=== PATIENT | female | born 1970 | race Caucasian/White ===

== ENCOUNTER 2016-12-20 04:40 | Emergency (ER) | payer OTHER ==
--- NOTE | 2016-12-20 05:07 | ERPHSYRPT ---
- History of Present Illness Time Seen by Provider: 12/20/16 05:00 Source: patient Exam Limitations: no limitations Physician History: The patient is a 46-year-old female with her complaining of increasing upper back muscular pain for 3 days. 3 days ago she helped her mother clean and do things around the house. The muscles in her upper back or now hurting. She's tried Tylenol and Topamax without relief. Timing/Duration: day(s) (3) Method of Injury: other (cleaning) Quality: sharp, aching Back Pain Location: T-spine, paraspinous muscles Severity of Pain-Max: moderate Severity of Pain-Current: moderate Modifying Factors: Improves With: pain medication Associated Symptoms: denies symptoms Previous symptoms: no prior history Allergies/Adverse Reactions: Penicillins Allergy (Verified 11/20/14 10:01) anaphylaxis aspirin Adverse Reaction (Verified 11/20/14 10:01) Home Medications: Albuterol 2.5 mg/0.5 ml [PROVENTIL Solution 2.5 MG/0.5 ML] 2.5 mg IH QID 11/20/14 [History] Albuterol Sulfate [Proair Hfa] 8.5 gm IH QID 11/20/14 [History] Cetirizine HCl [Zyrtec] 10 mg PO DAILY 11/20/14 [History] Cyclobenzaprine HCl 10 mg [Cyclobenzaprine 10 MG] 10 mg PO BID 11/20/14 [ History] Fluticasone Propionate [Flonase NASAL] 16 gm NS DAILY 11/20/14 [History] Fluticasone/Salmeterol [Advair 250-50 Diskus] 1 puff IH BID 11/20/14 [History] Ipratropium [place] 0.2 mg IH QID 11/20/14 [History] Levothyroxine Sodium 50 Mcg [Synthroid 50 Mcg] 50 mcg PO DAILY 11/20/14 [ History] Lisinopril/Hydrochlorothiazide [Lisinopril-Hctz 10-12.5 mg Tab] 1 each PO DAILY 11/20/14 [History] Montelukast Sodium [Singulair] 10 mg PO DAILY 11/20/14 [History] Mupirocin [Bactroban OINTMENT] 22 gm TP BID 11/20/14 [History] Oxybutynin Chloride 5 mg PO BID 11/20/14 [History] Paroxetine HCl 40 mg PO DAILY 11/20/14 [History] Ranitidine HCl 150 mg PO BID 11/20/14 [History] Topiramate 100 mg [Topamax 100 MG] 100 mg PO BID 11/20/14 [History] Tramadol HCl 50 mg [Ultram 50 mg] 50 mg PO BID 11/20/14 [History] Fexofenadine HCl [Kimberly] 06/27/15 [History] Hx Tetanus, Diphtheria Vaccination/Date Given: Yes Hx Influenza Vaccination/Date Given: Yes Hx Pneumococcal Vaccination/Date Given: Yes - Review of Systems Constitutional: No Fever, No Chills Eyes: No Symptoms Ears, Nose, & Throat: No Symptoms Respiratory: No Cough, No Dyspnea Cardiac: No Chest Pain, No Edema, No Syncope Abdominal/Gastrointestinal: No Abdominal Pain, No Nausea, No Vomiting, No Diarrhea Genitourinary Symptoms: No Dysuria Musculoskeletal: Back Pain Skin: No Rash Neurological: No Dizziness, No Focal Weakness, No Sensory Changes Psychological: No Symptoms Endocrine: No Symptoms Hematologic/Lymphatic: No Symptoms Immunological/Allergic: No Symptoms All Other Systems: Reviewed and Negative - Past Medical History Pertinent Past Medical History: Yes Neurological History: Migraines Cardiac History: Hypertension Respiratory History: Asthma Endocrine Medical History: Hypothyroidism Musculoskeletal History: Osteoporosis GI Medical History: GERD, Other History: Other Psycho-Social History: Depression Other Medical History: numerous environmental allergies - Past Surgical History Past Surgical History: Yes Neuro Surgical History: No Pertinent History Cardiac: No Pertinent History Respiratory: No Pertinent History Gastrointestinal: Cholecystectomy Genitourinary: No Pertinent History Musculoskeletal: No Pertinent History Female Surgical History: Tubal Ligation Other Surgical History: THERMAL ABLATION, states past sinus surgery unknown procedure as stated per pt - Social History Smoking Status: Never smoker Exposure to second hand smoke: Yes Drug Use: none Patient Lives Alone: No - Female History Hx Now: No - Physical Exam General Appearance: no apparent distress, alert Eye Exam: PERRL/EOMI, eyes nml inspection Ears, Nose, Throat Exam: normal ENT inspection Neck Exam: normal inspection, non-tender, supple, full range of motion, No meningismus, No midline tenderness Respiratory Exam: normal breath sounds, lungs clear, No respiratory distress Cardiovascular Exam: regular rate/rhythm, normal heart sounds Gastrointestinal Exam: soft, No tenderness, No mass Pelvic Exam: not done Rectal Exam: not done Back Exam: muscle spasm Extremity Exam: normal inspection, normal range of motion, No calf tenderness, No pedal edema Neurologic Exam: alert, oriented x 3, 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 Your given Toradol 60 mg IM injection in the ER and Flexeril 5 mg by mouth in the ER. If needed, continue to take Flexeril 5 mg every 8 hours at home. Continue with all her home medicines as previously directed. Follow-up with Dr. Rodríguez as needed. Prescriptions: Cyclobenzaprine HCl [Flexeril] 5 mg PO Q8H PRN PRN #10 tablet PRN Reason: Pain
[2016-12-20] MEDS ORDERED: TORAdol 30 mg Injection IM ONE (05:10)
[2016-12-20] MEDS ORDERED: Cyclobenzaprine 10 MG PO ONE ×2 (05:11→05:24)
[2016-12-20] MEDS ORDERED: TORAdol 30 mg Injection ONE (05:26)
[2016-12-20] MEDS ORDERED: Cyclobenzaprine 10 MG ONE (05:26)
[2016-12-20 06:49] VITALS: BP 130/78; PULSE 84; O2SAT 98
== END 2016-12-20 06:45 | disposition home or self-care (01) ==
LOC: ED 04:40
DX: M62.830 Muscle spasm of back (principal); Z79.899 Other long term (current) drug therapy; I10 Essential (primary) hypertension; E03.9 Hypothyroidism, unspecified
CPT/HCPCS: 96372; 99284; J1885; A9270-GY

== ENCOUNTER 2017-03-29 16:15 | Emergency (ER) | payer OTHER ==
[2017-03-29] MEDS ORDERED: Norco 10/325 MG Tablet PO ONE (18:25)
[2017-03-29] MEDS ORDERED: Norco 10/325 MG Tablet ONE (18:28)
--- NOTE | 2017-03-29 19:11 | ERPHSYRPT ---
- History of Present Illness Time Seen by Provider: 03/29/17 18:00 Source: patient Exam Limitations: clinical condition Patient Subjective Stated Complaint: PT REPROTS THIS AM HER RIGHT FOOT BEGAN SWELLING-DENIES INJURY DENIES HITTING IT OR STEPPING WRONG Triage Nursing Assessment: PT PINK WARM ET DRY-SWELLING NOTED TO BILATERAL FEET- NO OBVIOUS DEFORMITY-PULSES PRESENT Physician History: PATIENT COMPLAINS OF SWELLING OVER HER RIGHT FOOT SINCE THIS AM, HAS PAIN UPON WEIGHT BEARING. UNSURE OF TRAUMA OR INJURY. Method of Injury: unknown Occurred: this morning Quality: constant, sharpness Severity of Pain-Max: moderate Severity of Pain-Current: moderate Lower Extremities Pain: foot: right Modifying Factors: Improves With: movement Associated Symptoms: unable to bear weight Allergies/Adverse Reactions: Penicillins Allergy (Verified 03/29/17 17:57) anaphylaxis aspirin Adverse Reaction (Verified 03/29/17 17:57) Home Medications: Albuterol 2.5 mg/0.5 ml [PROVENTIL Solution 2.5 MG/0.5 ML] 2.5 mg IH QID 11/20/14 [History] Albuterol Sulfate [Proair Hfa] 8.5 gm IH QID 11/20/14 [History] Cetirizine HCl [Zyrtec] 10 mg PO DAILY 11/20/14 [History] Cyclobenzaprine HCl 10 mg [Cyclobenzaprine 10 MG] 10 mg PO BID 11/20/14 [ History] Fluticasone Propionate [Flonase NASAL] 16 gm NS DAILY 11/20/14 [History] Fluticasone/Salmeterol [Advair 250-50 Diskus] 1 puff IH BID 11/20/14 [History] Ipratropium [place] 0.2 mg IH QID 11/20/14 [History] Levothyroxine Sodium 50 Mcg [Synthroid 50 Mcg] 50 mcg PO DAILY 11/20/14 [ History] Lisinopril/Hydrochlorothiazide [Lisinopril-Hctz 10-12.5 mg Tab] 1 each PO DAILY 11/20/14 [History] Montelukast Sodium [Singulair] 10 mg PO DAILY 11/20/14 [History] Oxybutynin Chloride 5 mg PO BID 11/20/14 [History] Paroxetine HCl 40 mg PO DAILY 11/20/14 [History] Ranitidine HCl 150 mg PO BID 11/20/14 [History] Topiramate 100 mg [Topamax 100 MG] 100 mg PO BID 11/20/14 [History] Tramadol HCl 50 mg [Ultram 50 mg] 50 mg PO BID 11/20/14 [History] Fexofenadine HCl [Kimberly] 180 mg PO DAILY 06/27/15 [History] Hx Tetanus, Diphtheria Vaccination/Date Given: Yes Hx Influenza Vaccination/Date Given: Yes Hx Pneumococcal Vaccination/Date Given: Yes Immunizations Up to Date: Yes - Review of Systems Musculoskeletal: Injury, Joint Swelling Skin: Decubiti - Past Medical History Pertinent Past Medical History: Yes Neurological History: Migraines Cardiac History: Hypertension Respiratory History: Asthma Endocrine Medical History: Hypothyroidism Musculoskeletal History: Osteoporosis GI Medical History: GERD, Other History: Other Psycho-Social History: Depression Other Medical History: numerous environmental allergies - Past Surgical History Past Surgical History: Yes Neuro Surgical History: No Pertinent History Cardiac: No Pertinent History Respiratory: No Pertinent History Gastrointestinal: Cholecystectomy Genitourinary: No Pertinent History Musculoskeletal: No Pertinent History Female Surgical History: Tubal Ligation Other Surgical History: THERMAL ABLATION, states past sinus surgery unknown procedure as stated per pt - Social History Smoking Status: Never smoker Exposure to second hand smoke: Yes Drug Use: none Patient Lives Alone: No - Female History Hx Now: No - Nursing Vital Signs Nursing Vital Signs: Initial Vital Signs Temperature 97.4 F 03/29/17 17:54 Pulse Rate 89 03/29/17 17:54 Respiratory Rate 20 03/29/17 17:54 Blood Pressure 121/68 03/29/17 17:54 O2 Sat by Pulse Oximetry 97 03/29/17 17:54 Pain Scale Pain Intensity 8 - Physical Exam General Appearance: no apparent distress Foot Exam: right foot: limited range of motion, pain, soft tissue tenderness ( TENDERNESS PROXIMAL TO MID 3RD TO 5TH METATARSALS WITHOUT CREPITUS OR ECCHYMOSIS ), swelling, other (RIGHT PEDIS PULSE 2 +) SpO2 Interpretation: normal SpO2: 98 Oxygen Delivery: Room Air - Radiology Exams Right Foot X-ray Interpretation: Interpreted by me, Negative (NO FRACTURE) Ordered Tests: Active Orders 24 hr Category Date Time Status FOOT (MINIMUM 3 VIEWS) Stat Exams 03/29/17 Taken Medication Summary Discontinued Medications Generic Name Dose Route Start Last Admin Trade Name Freq PRN Reason Stop Dose Admin Hydrocodone Bitart/Acetaminophen 1 tab 03/29/17 18:25 03/29/17 18:29 [place] 10/325 Mg Tablet PO 03/29/17 18:26 1 tab STAT ONE Administration Hydrocodone Bitart/Acetaminophen Confirm 03/29/17 18:28 [place] 10/325 Mg Tablet Administered 03/29/17 18:29 Dose 1 tab .ROUTE .STK-MED ONE - Progress Progress: pain not gone completely Progress Note: 03/29/17 19:09 VELCRO ANKLE SPLINT APPLIED, HAS CRUTCHES AT HOME Counseled pt/family regarding: diagnosis, rad results - Departure Time of Disposition: 19:10 Departure Disposition: Home Clinical Impression: CONTUSION/ STRAIN RIGHT FOOT Condition: Stable Critical Care Time: No Referrals: PRITESH FISCHER [Primary Care Provider] - Additional Instructions: WEAR VELCRO SPLINT ANKLE FOR COMFORT. AMBULATE CRUTCHES NONWEIGHT BEARING RIGHT FOOT FOR 1 WEEK. APPLY ICE OVER FOOT SWELLING EVERY 4 HOURS, 40 MINUTES FOR 48 HOURS WITH ELEVATION. CONSULT YOUR PRIMARY CARE PHYSICIAN IN 1 WEEK. Prescriptions: Hydrocodone Bit/Acetaminophen [[place] 5/325Mg] 1 each PO Q4H PRN PRN #10 tablet PRN Reason: Pain
[2017-03-29 19:25] VITALS: BP 120/72; PULSE 76; O2SAT 99
--- NOTE | 2017-03-29 21:12 | XRAY ---
Indication: Swelling. No known injury. Comparison: None 3 nonweightbearing views of the right foot obtained. No bony, articular, or soft tissue abnormalities.
== END 2017-03-29 19:25 | disposition home or self-care (01) ==
LOC: ED 16:15
DX: S90.31XA Contusion of right foot, initial encounter (principal); S93.601A Unspecified sprain of right foot, initial encounter
CPT/HCPCS: 73630; 99283; A9270-GY

== ENCOUNTER 2017-12-11 19:37 | Emergency (ER) | payer OTHER ==
[2017-12-11] MEDS ORDERED: Zofran 4 MG/2 ML VIAL IV ONE (20:44)
[2017-12-11] MEDS ORDERED: TORAdol 30 mg Injection IV ONE (20:44)
[2017-12-11] MEDS ORDERED: Pepcid 20 MG VIAL IV ONE ×2 (20:44→20:59)
[2017-12-11] MEDS ORDERED: Sodium Chloride 0.9% 1000 ML 1,000 ML IV SCH (20:45)
[2017-12-11 20:52] LABS: BASOPHIL % 0.5 % (0.0-0.4); Basophil (Absolute #) 0.05 (0-0.4); Eosinophil % 3.6 % (0.00-5.0); Eosinophil (Absolute #) 0.36 (0-0.5); Granulocyte Absolute (ANC) 5.75 (1.4-6.9); Granulocytes % 58.2 % (36.0-66.0); Hemoglobin 11.9 gm/dl (12.0-16.0); Lymphocyte (Absolute #) 2.91 (1.0-4.6); Lymphocytes % 29.4 % (24.0-44.0); Mean Cell Volume 80.3 fl (78-100); Mean Corpuscular Hgb Concent. 31.3 g/dl (32-36); Mean Platelet Volume 10.5 fl (6-9.5); Monocyte (Absolute #) 0.82 (0.0-1.3); Monocytes % 8.3 % (0.0-12.0); Platelet Count 298 K/mm3 (150-450); Red Blood Count 4.73 M/mm3 (4.1-5.4); Red Cell Distribution Width 17.8 % (11.5-14.0); White Blood Count 9.9 K/mm3 (4.0-10.5)
[2017-12-11 20:54] LABS: Mean Corpuscular Hemoglobin 25.1 pg (26-32)
[2017-12-11 20:57] LABS: ALBUMIN 3.9 g/dL (3.5-5.0); ALKALINE PHOSPHATASE 122 U/L (38-126); ANION GAP 17.5 MEQ/L (5-15); BLOOD UREA NITROGEN 15 mg/dL (7-17); CHLORIDE 110 mmol/L (98-107); Calcium 9.3 mg/dL (8.4-10.2); Glucose 119 mg/dL (74-106); LIPASE 134 U/L (23-300); Potassium 3.5 mmol/L (3.5-5.1); SGOT/AST 25 U/L (14-36); SGPT/ALT 29 U/L (0-35); SODIUM 141 mmol/L (137-145); Total Protein 7.1 g/dL (6.3-8.2)
[2017-12-11] MEDS ORDERED: Zofran 4 MG/2 ML VIAL ONE (20:59)
[2017-12-11] MEDS ORDERED: Sodium Chloride 0.9% 1000 ML 1,000 ML ONE (20:59)
[2017-12-11] MEDS ORDERED: TORAdol 30 mg Injection ONE (20:59)
[2017-12-11 21:02] LABS: Carbon Dioxide 17 mmol/L (22-30)
[2017-12-11 21:08] LABS: Appearance SLIGHTLY CLOUDY (CLEAR); Bilirubin NEGATIVE (NEGATIVE); Blood 250 Ery/ul (0-5); Glucose NEGATIVE (NEGATIVE); Ketones NEGATIVE (NEGATIVE); Leukocyte Esterase 1+ (NEGATIVE); Nitrite POSITIVE (NEGATIVE); Protein,Urine Dip TRACE (Negative); Urobilinogen NORMAL mg/dL (0-1)
[2017-12-11 21:09] LABS: Mucus MODERATE /HPF (NEGATIVE); RBC 15-25 /HPF (0-2)
[2017-12-11 21:10] LABS: Bacteria MODERATE /HPF (NEGATIVE); Epithelial Cells MODERATE /HPF (FEW)
[2017-12-11] MEDS ORDERED: SUBLIMAZE 100 MCG/2 ML IV ONE (23:25)
[2017-12-11] MEDS ORDERED: SUBLIMAZE 100 MCG/2 ML ONE (23:46)
[2017-12-12] MEDS ORDERED: BACTRIM DS TABLET PO STA (01:07)
[2017-12-12] MEDS ORDERED: BACTRIM DS TABLET PO ONE (01:11)
--- NOTE | 2017-12-12 01:13 | ERPHSYRPT ---
- History of Present Illness Time Seen by Provider: 12/11/17 20:31 Historian: patient Exam Limitations: no limitations Patient Subjective Stated Complaint: pt states she has virgen having sharp abd pain since eating supper approx 30 min ago, states "all over the stomach". states she has also been having numbness in lt leg for approx 20 min Triage Nursing Assessment: pt awake and alert. answers questions approp. pt ambulaotry with steady g ait noted. respirations nonlabored with lungs cta. abd soft, nontender to light palpation with bowel sounds noted. pt states she has been unable to void since approx 1530 Physician History: Pt started c/o right lower abdominal pain this afternoon, after eating at [employer]. She denies vomiting, or fever, chills, but nauseated, and had diarrhea. She denies urinary complaints. Timing/Duration: today Activities at Onset: none Quality: cramping Abdominal Pain Onset Location: RLQ Pain Radiation: no radiation Severity of Pain-Max: moderate Severity of Pain-Current: mild Modifying Factors: Improves With: nothing Associated Symptoms: denies symptoms Previous symptoms: no prior history Allergies/Adverse Reactions: Penicillins Allergy (Verified 12/11/17 20:12) anaphylaxis aspirin Adverse Reaction (Verified 12/11/17 20:12) Home Medications: Albuterol 2.5 mg/0.5 ml [PROVENTIL Solution 2.5 MG/0.5 ML] 2.5 mg IH QID 11/20/14 [History] Albuterol Sulfate [Proair Hfa] 8.5 gm IH QID 11/20/14 [History] Cetirizine HCl [Zyrtec] 10 mg PO DAILY 11/20/14 [History] Cyclobenzaprine HCl 10 mg [Cyclobenzaprine 10 MG] 10 mg PO BID 11/20/14 [ History] Fluticasone Propionate [Flonase NASAL] 16 gm NS DAILY 11/20/14 [History] Fluticasone/Salmeterol [Advair 250-50 Diskus] 1 puff IH BID 11/20/14 [History] Ipratropium [place] 0.2 mg IH QID 11/20/14 [History] Levothyroxine Sodium 50 Mcg [Synthroid 50 Mcg] 50 mcg PO DAILY 11/20/14 [ History] Lisinopril/Hydrochlorothiazide [Lisinopril-Hctz 10-12.5 mg Tab] 1 each PO DAILY 11/20/14 [History] Montelukast Sodium [Singulair] 10 mg PO DAILY 11/20/14 [History] Oxybutynin Chloride 5 mg PO BID 11/20/14 [History] PARoxetine HCl [Paroxetine HCl] 40 mg PO DAILY 11/20/14 [History] Topiramate 100 mg [Topamax 100 MG] 100 mg PO BID 11/20/14 [History] Tramadol HCl 50 mg [Ultram 50 mg] 50 mg PO BID 11/20/14 [History] raNITIdine HCl [Ranitidine HCl] 150 mg PO BID 11/20/14 [History] Fexofenadine HCl [Kimberly] 180 mg PO DAILY 06/27/15 [History] Hx Tetanus, Diphtheria Vaccination/Date Given: Yes Hx Influenza Vaccination/Date Given: Yes Hx Pneumococcal Vaccination/Date Given: Yes Immunizations Up to Date: Yes - Review of Systems Constitutional: No Symptoms Abdominal/Gastrointestinal: Abdominal Pain, Nausea, Diarrhea All Other Systems: Reviewed and Negative - Past Medical History Pertinent Past Medical History: Yes Neurological History: Migraines Cardiac History: Hypertension Respiratory History: Asthma Endocrine Medical History: Hypothyroidism Musculoskeletal History: Osteoporosis GI Medical History: GERD, Other History: Other Psycho-Social History: Depression Other Medical History: numerous environmental allergies - Past Surgical History Past Surgical History: Yes Neuro Surgical History: No Pertinent History Cardiac: No Pertinent History Respiratory: No Pertinent History Gastrointestinal: Cholecystectomy Genitourinary: No Pertinent History Musculoskeletal: No Pertinent History Female Surgical History: Tubal Ligation Other Surgical History: THERMAL ABLATION, states past sinus surgery unknown procedure as stated per pt - Social History Smoking Status: Never smoker Exposure to second hand smoke: Yes Drug Use: none Patient Lives Alone: No - Female History Hx Last Menstrual Period: ablation Hx Now: No - Nursing Vital Signs Nursing Vital Signs: Initial Vital Signs Temperature 97.3 F 12/11/17 20:04 Pulse Rate 87 12/11/17 20:04 Respiratory Rate 22 12/11/17 20:04 Blood Pressure 118/98 12/11/17 20:04 O2 Sat by Pulse Oximetry 100 12/11/17 20:04 Pain Scale Pain Intensity 10 - Physical Exam General Appearance: no apparent distress Eye Exam: eyes nml inspection Ears, Nose, Throat Exam: normal ENT inspection Neck Exam: normal inspection, non-tender, supple Respiratory Exam: normal breath sounds, lungs clear, airway intact, No chest tenderness Cardiovascular Exam: regular rate/rhythm, normal heart sounds, normal peripheral pulses, No murmur Gastrointestinal/Abdomen Exam: soft, normal bowel sounds, tenderness (diffuse, RLQ), No distention, No mass, No guarding, No ecchymosis, No pulsatile mass, No rebound, No hernia Pelvic Exam: not done Back Exam: normal inspection, CVA tenderness (right) Extremity Exam: normal inspection Neurologic Exam: alert, oriented x 3, normal mood/affect Skin Exam: normal color, warm, dry, No rash Lymphatic Exam: No adenopathy SpO2 Interpretation: normal SpO2: 92 Oxygen Delivery: Room Air - Course Nursing assessment & vital signs reviewed: Yes - CT Exams Abdomen/Pelvis CT Interpretation: Negative, Tele-radiologist Report, Other (mild relative prominence of the right renal pelvis) Ordered Tests: Active Orders 24 hr Category Date Time Status IV Insertion STAT Care 12/11/17 20:44 Active ABDOMEN AND PELVIS W CONTRAST [CT] Stat Exams 12/11/17 20:45 Taken CBC W DIFF Stat Lab 12/11/17 20:48 Completed CMP Stat Lab 12/11/17 20:48 Completed CULTURE,URINE Stat Lab 12/11/17 20:54 Received LIPASE Stat Lab 12/11/17 20:48 Completed UA W/ MICROSCOPIC Stat Lab 12/11/17 20:54 Completed Medication Summary Generic Name Dose Route Start Last Admin Trade Name Freq PRN Reason Stop Dose Admin Sodium Chloride 1,000 mls @ 100 mls/hr 12/11/17 20:45 12/11/17 21:02 Sodium Chloride 0.9% 1000 Ml IV 01/10/18 20:44 100 mls/hr .Q10H ARABELLA Administration Discontinued Medications Generic Name Dose Route Start Last Admin Trade Name Freq PRN Reason Stop Dose Admin Famotidine 20 mg 12/11/17 20:44 12/11/17 21:04 Pepcid 20 Mg Vial IV 12/11/17 20:45 20 mg STAT ONE Administration Famotidine Confirm 12/11/17 20:59 Pepcid 20 Mg Vial Administered 12/11/17 21:00 Dose 20 mg IV .STK-MED ONE Fentanyl Citrate 50 mcg 12/11/17 23:25 12/12/17 00:00 Sublimaze 100 Mcg/2 Ml IV 12/11/17 23:26 50 mcg STAT ONE Administration Fentanyl Citrate Confirm 12/11/17 23:46 Sublimaze 100 Mcg/2 Ml Administered 12/11/17 23:47 Dose 100 mcg .ROUTE .STK-MED ONE Ketorolac Tromethamine 30 mg 12/11/17 20:44 12/11/17 21:02 Toradol 30 Mg Injection IV 12/11/17 20:45 30 mg STAT ONE Administration Ketorolac Tromethamine Confirm 12/11/17 20:59 Toradol 30 Mg Injection Administered 12/11/17 21:00 Dose 30 mg .ROUTE .STK-MED ONE Ondansetron HCl 4 mg 12/11/17 20:44 12/11/17 21:04 Zofran 4 Mg/2 Ml Vial IV 12/11/17 20:45 4 mg STAT ONE Administration Ondansetron HCl Confirm 12/11/17 20:59 Zofran 4 Mg/2 Ml Vial Administered 12/11/17 21:00 Dose 4 mg .ROUTE .STK-MED ONE Lab/Rad Data: Laboratory Result Diagrams 12/11/17 20:48 12/11/17 20:48 Laboratory Results 12/11/17 12/11/17 12/11/17 Range/Units 20:54 20:48 20:48 WBC 9.9 (4.0-10.5) K/mm3 RBC 4.73 (4.1-5.4) M/mm3 Hgb 11.9 L (12.0-16.0) gm/dl Hct 38.0 (35-47) % MCV 80.3 (78-100) fl MCH 25.1 L (26-32) pg MCHC 31.3 L (32-36) g/dl RDW 17.8 H (11.5-14.0) % Plt Count 298 (150-450) K/mm3 MPV 10.5 H (6-9.5) fl Gran % 58.2 (36.0-66.0) % Eos # (Auto) 0.36 (0-0.5) Absolute Lymphs (auto) 2.91 (1.0-4.6) Absolute Monos (auto) 0.82 (0.0-1.3) Lymphocytes % 29.4 (24.0-44.0) % Monocytes % 8.3 (0.0-12.0) % Eosinophils % 3.6 (0.00-5.0) % Basophils % 0.5 (0.0-0.4) % Absolute Granulocytes 5.75 (1.4-6.9) Basophils # 0.05 (0-0.4) Sodium 141 (137-145) mmol/L Potassium 3.5 (3.5-5.1) mmol/L Chloride 110 H (98-107) mmol/L Carbon Dioxide 17 L (22-30) mmol/L Anion Gap 17.5 H (5-15) MEQ/L BUN 15 (7-17) mg/dL Creatinine 1.00 (0.52-1.04) mg/dL Estimated GFR > 60.0 ML/MIN Glucose 119 H (74-106) mg/dL Calcium 9.3 (8.4-10.2) mg/dL Total Bilirubin 0.20 (0.2-1.3) mg/dL AST 25 (14-36) U/L ALT 29 (0-35) U/L Alkaline Phosphatase 122 (38-126) U/L Serum Total Protein 7.1 (6.3-8.2) g/dL Albumin 3.9 (3.5-5.0) g/dL Lipase 134 (23-300) U/L Ur Collection Type VOID Urine Color YELLOW (YELLOW) Urine Appearance SLIGHTLY CLOUDY (CLEAR) Urine pH 5.0 (5-6) Ur Specific [place] 1.020 (1.005-1.025) Urine Protein TRACE (Negative) Urine Ketones NEGATIVE (NEGATIVE) Urine Blood 250 (0-5) Chau/ul Urine Nitrite POSITIVE (NEGATIVE) Urine Bilirubin NEGATIVE (NEGATIVE) Urine Urobilinogen NORMAL (0-1) mg/dL Ur Leukocyte Esterase 1+ (NEGATIVE) Urine Microscopic RBC 15-25 (0-2) /HPF Urine Microscopic WBC 10-15 (0-5) /HPF Ur Epithelial Cells MODERATE (FEW) /HPF Urine Bacteria MODERATE (NEGATIVE) /HPF Urine Mucus MODERATE (NEGATIVE) /HPF Urine Culture Reflexed YES (NO) Urine Glucose NEGATIVE (NEGATIVE) mg/dL Specimen Received 12/11/17 2100 - Progress Progress: improved Progress Note: 12/12/17 01:11 Pt has been afebrile, stable, did not vomit. I discussed our results with her and her , she was given Bactrim DS PO and discharged in stable condition to rest, drink plenty of fluids, and follow up with her physician next week. Counseled pt/family regarding: lab results, diagnosis, need for follow-up, rad results - Departure Time of Disposition: 01:12 Departure Disposition: Home Clinical Impression: UTI (urinary tract infection) Qualifiers: Urinary tract infection type: site unspecified Hematuria presence: without hematuria Qualified Code(s): N39.0 - Urinary tract infection, site not specified Condition: Stable Critical Care Time: No Referrals: PRITESH FISCHER [Primary Care Provider] - Instructions: Urinary Tract Infection, Adult (DC) Additional Instructions: Rest x 2-3 days, drink plenty of fluids, follow up with physician next week, return if severe pain, vomiting, fever> 102 F! Prescriptions: Sulfamethoxazole/Trimethoprim [Bactrim Ds Tablet] 1 each PO BID #14 tablet
[2017-12-12 01:56] VITALS: BP 113/70; PULSE 97; O2SAT 96
--- NOTE | 2017-12-12 08:48 | XRAY ---
Indication: Abdomen pain. Multiple contiguous axial images obtained through the abdomen and pelvis using 80 cc Isovue 370 contrast only. Comparison: June 27, 2015. Lung bases remain clear. Heart is not enlarged. Stable small hiatal hernia. Noncontrasted stomach and bowel loops appear nonobstructed. Normal appendix. Again mild diffuse scattered colonic fecal debris and cholecystectomy. No free fluid/air. New mild right sided hydronephrosis. Right ureter is also slightly prominent with new 3 mm urinary bladder density adjacent to the right UVJ favoring recent passage of calculus. Remaining liver, pancreas, spleen, adrenal glands, kidneys, ureters, bladder, uterus, and aorta appear unremarkable. No pathologic retroperitoneal lymphadenopathy. Osseous structures intact. Impression: 1. New 3 mm urinary bladder calculus with mild right renal hydronephrosis and minimal ureteral prominence from recent passage of said calculus. 2. Again fecal stasis without obstruction and small hiatal hernia. Comment: Preliminary interpretation was made by [facility]. No critical discrepancy. CTDI 23.68
== END 2017-12-12 01:56 | disposition home or self-care (01) ==
LOC: ED 19:37
DX: N39.0 Urinary tract infection, site not specified (principal); R10.31 Right lower quadrant pain; Z79.899 Other long term (current) drug therapy
CPT/HCPCS: 36000; 36415; 74177; 80053; 81000; 83690; 85025; 87086; 96360; 96361; 96374; 96375; 99284; J1885; J2405; J3010; A9270-GY

== ENCOUNTER 2019-07-28 01:43 | Emergency (ER) | payer OTHER ==
--- NOTE | 2019-07-28 02:24 | ERPHSYRPT ---
- History of Present Illness Source: patient Exam Limitations: no limitations Patient Subjective Stated Complaint: Patient c/o a lestion to right breast that started after she began to itch due to bed bugs. Patient scratched her breast and caused an abrasion. The abrasion subsequently became infectioned. Patient has been self treating with topical antibiotic ointment. Patient states that her symptoms improved but is concerned that the lesion is still red and tender. No associated fevers. Physician History: Pain only upon palpation. No nipple discharge. NO dimpling. Timing/Duration: week(s) (3 weeks. ) Quality: burning Severity: mild Location: other (rt. breast. ) Possible Causes: insect sting Associated Symptoms: No blisters, No change in skin texture, No difficulty breathing, No flushing, No headache, No jaundice, No numbness, No petechiae Allergies/Adverse Reactions: Penicillins Allergy (Verified 07/28/19 02:01) anaphylaxis aspirin Adverse Reaction (Verified 07/28/19 02:01) Home Medications: Albuterol 2.5 mg/0.5 ml [PROVENTIL Solution 2.5 MG/0.5 ML] 2.5 mg IH QID 11/20/14 [History] Albuterol Sulfate [Proair Hfa] 8.5 gm IH QID 11/20/14 [History] Cetirizine HCl [Zyrtec] 10 mg PO DAILY 11/20/14 [History] Cyclobenzaprine HCl 10 mg [Cyclobenzaprine 10 MG] 10 mg PO BID 11/20/14 [ History] Fluticasone Propionate [Flonase NASAL] 16 gm NS DAILY 11/20/14 [History] Fluticasone/Salmeterol [Advair 250-50 Diskus] 1 puff IH BID 11/20/14 [History] Ipratropium [place] 0.2 mg IH QID 11/20/14 [History] Levothyroxine Sodium 50 Mcg [Synthroid 50 Mcg] 50 mcg PO DAILY 11/20/14 [ History] Lisinopril/Hydrochlorothiazide [Lisinopril-Hctz 10-12.5 mg Tab] 1 each PO DAILY 11/20/14 [History] Montelukast Sodium [Singulair] 10 mg PO DAILY 11/20/14 [History] Oxybutynin Chloride 5 mg PO BID 11/20/14 [History] PARoxetine HCl [Paroxetine HCl] 40 mg PO DAILY 11/20/14 [History] Topiramate 100 mg [Topamax 100 MG] 100 mg PO BID 11/20/14 [History] Tramadol HCl 50 mg [Ultram 50 mg] 50 mg PO BID 11/20/14 [History] raNITIdine HCl [Ranitidine HCl] 150 mg PO BID 11/20/14 [History] Fexofenadine HCl [Kimberly] 180 mg PO DAILY 06/27/15 [History] Hx Tetanus, Diphtheria Vaccination/Date Given: Yes Hx Influenza Vaccination/Date Given: Yes Hx Pneumococcal Vaccination/Date Given: Yes - Review of Systems Constitutional: No Fever, No Chills Eyes: No Symptoms Ears, Nose, & Throat: No Symptoms Respiratory: No Cough, No Dyspnea Cardiac: No Chest Pain, No Edema, No Syncope Abdominal/Gastrointestinal: No Abdominal Pain, No Nausea, No Vomiting, No Diarrhea Genitourinary Symptoms: No Dysuria Musculoskeletal: No Back Pain, No Neck Pain Skin: Cellulitis, No Rash Neurological: No Dizziness, No Focal Weakness, No Sensory Changes Psychological: No Symptoms Endocrine: No Symptoms All Other Systems: Reviewed and Negative - Past Medical History Pertinent Past Medical History: Yes Neurological History: Migraines Cardiac History: Hypertension Respiratory History: Asthma Endocrine Medical History: Hypothyroidism Musculoskeletal History: Osteoporosis GI Medical History: GERD, Other History: Other Psycho-Social History: Depression Other Medical History: numerous environmental allergies - Past Surgical History Past Surgical History: Yes Neuro Surgical History: No Pertinent History Cardiac: No Pertinent History Respiratory: No Pertinent History Gastrointestinal: Cholecystectomy Genitourinary: No Pertinent History Musculoskeletal: No Pertinent History Female Surgical History: Tubal Ligation Other Surgical History: THERMAL ABLATION, states past sinus surgery unknown procedure as stated per pt - Social History Smoking Status: Never smoker Exposure to second hand smoke: Yes Drug Use: none Patient Lives Alone: No - Nursing Vital Signs Nursing Vital Signs: Initial Vital Signs Temperature 98.3 F 07/28/19 02:01 Pulse Rate 94 H 07/28/19 02:01 Respiratory Rate 18 07/28/19 02:01 Blood Pressure 147/93 07/28/19 02:01 O2 Sat by Pulse Oximetry 99 07/28/19 02:01 Pain Scale Pain Intensity 10 - Physical Exam General Appearance: no apparent distress, alert Eye Exam: PERRL/EOMI, eyes nml inspection Ears, Nose, Throat Exam: normal ENT inspection, pharynx normal, moist mucous membranes Neck Exam: normal inspection, non-tender, supple, full range of motion Respiratory Exam: normal breath sounds, lungs clear, No respiratory distress Cardiovascular Exam: regular rate/rhythm, normal heart sounds Gastrointestinal/Abdomen Exam: soft, mass, No tenderness Back Exam: normal inspection, normal range of motion, No CVA tenderness, No vertebral tenderness Extremity Exam: normal inspection, normal range of motion Neurologic Exam: alert, oriented x 3, cooperative, normal mood/affect, sensation nml, No motor deficits Skin Exam: normal color, warm, dry SpO2 Interpretation: normal SpO2: 99 O2 Delivery: Room Air - Progress Counseled pt/family regarding: diagnosis - Departure Departure Disposition: Home Clinical Impression: Cellulitis Condition: Stable Critical Care Time: No Referrals: PRITESH FISCHER [Primary Care Provider] - Instructions: Wound Care (DC) Additional Instructions: Discharge/Care Plan ABBY ANG was seen on 07/28/19 in the Emergency Room. The patient was counseled regarding Diagnosis,Lab results, Imaging studies, need for follow up and when to return to the Emergency Room. Prescriptions given: Discharge Note I have spoken with the patient and/or caregivers. I have explained the patient' s condition, diagnosis and treatment plan based on the information available to me at this time. I have answered the patient's and/or caregiver's questions and addressed any concerns. The patient and/or caregivers have as good understanding of the patient's diagnosis, condition and treatment plan as can be expected at this point. The vital signs have been stable. The patient's condition is stable and appropriate for discharge from the emergency department. The patient will pursue further outpatient evaluation with the primary care physician or other designated or consulting physician as outlined in the discharge instructions. The patient and/or caregivers are agreeable to this plan of care and follow-up instructions have been explained in detail. The patient and/or caregivers have received these instruction. The patient/and or caregivers are aware that any significant change in condition or worsening of symptoms should prompt an immediate return to this or the closest emergency department or call 911. Prescriptions: Clindamycin HCl 150 mg [Cleocin 150 mg Capsule] 2 cap PO TID 7 Days #42 capsule
[2019-07-28 02:45] VITALS: BP 113/77; PULSE 83
[2019-07-28 02:47] VITALS: O2SAT 99
== END 2019-07-28 02:45 | disposition home or self-care (01) ==
LOC: ED 01:43
DX: N61.0 Mastitis without abscess (principal); S20.111A Abrasion of breast, right breast, initial encounter; W57.XXXA Bitten or stung by nonvenomous insect and other nonvenomous arthropods, initial encounter; Z79.899 Other long term (current) drug therapy; I10 Essential (primary) hypertension; J45.909 Unspecified asthma, uncomplicated; E03.9 Hypothyroidism, unspecified; M81.0 Age-related osteoporosis without current pathological fracture; K21.9 Gastro-esophageal reflux disease without esophagitis
CPT/HCPCS: 99283

== ENCOUNTER 2020-01-27 09:51 | Emergency (ER) | payer OTHER ==
[2020-01-27 10:20] VITALS: O2SAT 100
--- NOTE | 2020-01-27 10:35 | ERPHSYRPT ---
- History of Present Illness Time Seen by Provider: 01/27/20 10:20 Source: patient Exam Limitations: no limitations Patient Subjective Stated Complaint: rash under breasts bilaterally Triage Nursing Assessment: pt to ED c/o rash under breasts bilaterally. rates 10/10 pain. also reports new salt used since January 12. states rash appeared last night while eating the new salt. no hx allergies to salt products in the past. redness noted below breasts. Physician History: This is a 50-year-old white female who noticed some redness under her breasts bilaterally. Patient states that she had had bedbug bites in the recent past but not in the last several days. She did state that she has had sweating under her arms and under her breasts recently. Patient did consume a new type of salt and thought maybe she might have allergic reaction. She had no respiratory issues. She is not wheezing and does not have any difficulty breathing Timing/Duration: yesterday Severity: mild Location: other (Underneath her breasts bilaterally in the folds) Possible Causes: other Associated Symptoms: rash Allergies/Adverse Reactions: Penicillins Allergy (Verified 01/27/20 10:20) anaphylaxis aspirin Adverse Reaction (Verified 01/27/20 10:20) Home Medications: Albuterol 2.5 mg/0.5 ml [PROVENTIL Solution 2.5 MG/0.5 ML] 2.5 mg IH QID 11/20/14 [History] Albuterol Sulfate [Proair Hfa] 8.5 gm IH QID 11/20/14 [History] Cetirizine HCl [Zyrtec] 10 mg PO DAILY 11/20/14 [History] Cyclobenzaprine HCl 10 mg [Cyclobenzaprine 10 MG] 10 mg PO BID 11/20/14 [History] Fluticasone Propionate [Flonase NASAL] 16 gm NS DAILY 11/20/14 [History] Fluticasone/Salmeterol [Advair 250-50 Diskus] 1 puff IH BID 11/20/14 [History] Ipratropium [place] 0.2 mg IH QID 11/20/14 [History] Levothyroxine Sodium 50 Mcg [Synthroid 50 Mcg] 50 mcg PO DAILY 11/20/14 [History] Lisinopril/Hydrochlorothiazide [Lisinopril-Hctz 10-12.5 mg Tab] 1 each PO DAILY 11/20/14 [History] Montelukast Sodium [Singulair] 10 mg PO DAILY 11/20/14 [History] Oxybutynin Chloride 5 mg PO BID 11/20/14 [History] PARoxetine HCL [Paroxetine HCl] 40 mg PO DAILY 11/20/14 [History] Topiramate 100 mg [Topamax 100 MG] 100 mg PO BID 11/20/14 [History] Tramadol HCl 50 mg [Ultram 50 mg] 50 mg PO BID 11/20/14 [History] raNITIdine HCL [Ranitidine HCl] 150 mg PO BID 11/20/14 [History] Fexofenadine HCl [Kimberly] 180 mg PO DAILY 06/27/15 [History] Hx Tetanus, Diphtheria Vaccination/Date Given: Yes Hx Influenza Vaccination/Date Given: Yes Hx Pneumococcal Vaccination/Date Given: Yes Immunizations Up to Date: Yes Travel Risk - International Travel Have you traveled outside of the country in past 3 weeks: No - Coronavirus Screening Are you exhibiting any of the following symptoms?: No Close contact with a COVID-19 positive Pt in past 14-21 Days: No - Review of Systems Constitutional: No Symptoms Eyes: No Symptoms Ears, Nose, & Throat: No Symptoms Respiratory: No Symptoms Cardiac: No Symptoms Abdominal/Gastrointestinal: No Symptoms Genitourinary Symptoms: No Symptoms Musculoskeletal: No Symptoms Skin: Rash (Bilateral breast) Neurological: No Symptoms Psychological: No Symptoms Endocrine: No Symptoms Hematologic/Lymphatic: No Symptoms Immunological/Allergic: No Symptoms All Other Systems: Reviewed and Negative - Past Medical History Pertinent Past Medical History: Yes Neurological History: Migraines ENT History: Cataracts Cardiac History: Hypertension Respiratory History: Asthma Endocrine Medical History: Hypothyroidism Musculoskeletal History: Osteoporosis GI Medical History: GERD, Other History: Other Psycho-Social History: Depression Female Reproductive Disorders: No Pertinent History Other Medical History: numerous environmental allergies - Past Surgical History Past Surgical History: Yes Neuro Surgical History: No Pertinent History Cardiac: No Pertinent History Respiratory: No Pertinent History Gastrointestinal: Cholecystectomy Genitourinary: No Pertinent History Musculoskeletal: No Pertinent History Female Surgical History: Tubal Ligation Other Surgical History: THERMAL ABLATION, states past sinus surgery unknown procedure as stated per pt - Social History Smoking Status: Never smoker Exposure to second hand smoke: Yes Drug Use: none Patient Lives Alone: No - Female History Hx Now: No - Nursing Vital Signs Nursing Vital Signs: Initial Vital Signs Temperature 97.4 F 01/27/20 10:09 Pulse Rate 85 01/27/20 10:09 Respiratory Rate 20 01/27/20 10:09 Blood Pressure 149/91 01/27/20 10:09 O2 Sat by Pulse Oximetry 100 01/27/20 10:09 Pain Scale Pain Intensity 10 - Physical Exam General Appearance: no apparent distress, alert, anxiety Eye Exam: PERRL/EOMI, eyes nml inspection Ears, Nose, Throat Exam: normal ENT inspection, moist mucous membranes Neck Exam: normal inspection, non-tender, supple, full range of motion Respiratory Exam: normal breath sounds, lungs clear, airway intact, No chest tenderness, No respiratory distress Gastrointestinal/Abdomen Exam: No tenderness Pelvic Exam: not done Rectal Exam: not done Back Exam: normal inspection, normal range of motion, No CVA tenderness, No vertebral tenderness Extremity Exam: normal inspection, normal range of motion, pelvis stable Neurologic Exam: alert, oriented x 3, 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, 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, normal mood/affect, nml cerebellar function, nml station & gait, sensation nml Skin Exam: rash (Underneath bilateral breasts in the skin folds), other Lymphatic Exam: No adenopathy SpO2 Interpretation: normal SpO2: 100 O2 Delivery: Room Air - Course Nursing assessment & vital signs reviewed: Yes - Progress Progress: unchanged Counseled pt/family regarding: diagnosis, need for follow-up - Departure Departure Disposition: Home Clinical Impression: Candidal intertrigo Condition: Stable Critical Care Time: No Referrals: PRITESH FISCHER [Primary Care Provider] - Additional Instructions: Wash area under both breasts with soap and water daily. Dry out the area well. May use a repairer hairspring if needed. Alternate hydrocortisone ointment and the nystatin antifungal powder every 6 hours. Each evening, make sure you apply the nystatin antifungal powder to the rash sites. Follow-up with your primary care physician for further management. Prescriptions: Hydrocortisone 1% Cream [Cortisone 1% Cream] 60 gm TP UD #1 tube Nystatin Powder 15 gm [Nystop Powder 15 gm] 60 gm TP UD #60 gm
[2020-01-27 11:24] VITALS: BP 140/82; PULSE 100
== END 2020-01-27 11:22 | disposition home or self-care (01) ==
LOC: ED 09:51
DX: B37.2 Candidiasis of skin and nail (principal); L30.4 Erythema intertrigo; E03.9 Hypothyroidism, unspecified; M81.0 Age-related osteoporosis without current pathological fracture; K21.9 Gastro-esophageal reflux disease without esophagitis; I10 Essential (primary) hypertension; Z79.899 Other long term (current) drug therapy
CPT/HCPCS: 99283

== ENCOUNTER 2020-04-25 21:14 | Emergency (ER) | payer OTHER ==
--- NOTE | 2020-04-25 21:26 | ERPHSYRPT ---
- History of Present Illness Time Seen by Provider: 04/25/20 21:26 Historian: patient, family Exam Limitations: no limitations Physician History: This is a 50-year-old obese white male whose had a history of cholecystectomy and bilateral tubal ligation as well as thermal ablation and presents with generalized abdominal and pelvic pain. It has been present intermittently for 2 months. Patient does have a history of irritable bowel syndrome. In addition, she has a history of COPD, hypertension, hypothyroidism, gastroesophageal reflux disease and migraine headaches. Patient's pain is becoming more frequent and more intense. Patient denies chest pain she denies shortness of breath. She has no back pain. She has no urinary symptoms. Timing/Duration: intermittent, worse, other (2 months) Abdominal Pain Onset Location: generalized abdomen Pain Radiation: no radiation Severity of Pain-Max: mild Severity of Pain-Current: mild Modifying Factors: Improves With: nothing Associated Symptoms: denies symptoms Previous symptoms: same symptoms as today Allergies/Adverse Reactions: Penicillins Allergy (Verified 04/25/20 21:32) anaphylaxis aspirin Adverse Reaction (Verified 04/25/20 21:32) Home Medications: Albuterol 2.5 mg/0.5 ml [PROVENTIL Solution 2.5 MG/0.5 ML] 2.5 mg IH QID 11/20/14 [History] Albuterol Sulfate [Proair Hfa] 8.5 gm IH QID 11/20/14 [History] Cetirizine HCl [Zyrtec] 10 mg PO DAILY 11/20/14 [History] Cyclobenzaprine HCl 10 mg [Cyclobenzaprine 10 MG] 10 mg PO BID 11/20/14 [History] Fluticasone Propionate [Flonase NASAL] 16 gm NS DAILY 11/20/14 [History] Fluticasone/Salmeterol [Advair 250-50 Diskus] 1 puff IH BID 11/20/14 [History] Ipratropium [place] 0.2 mg IH QID 11/20/14 [History] Levothyroxine Sodium 50 Mcg [Synthroid 50 Mcg] 50 mcg PO DAILY 11/20/14 [History] Lisinopril/Hydrochlorothiazide [Lisinopril-Hctz 10-12.5 mg Tab] 1 each PO DAILY 11/20/14 [History] Montelukast Sodium [Singulair] 10 mg PO DAILY 11/20/14 [History] Oxybutynin Chloride 5 mg PO BID 11/20/14 [History] PARoxetine HCL [Paroxetine HCl] 40 mg PO DAILY 11/20/14 [History] Topiramate 100 mg [Topamax 100 MG] 100 mg PO BID 11/20/14 [History] Tramadol HCl 50 mg [Ultram 50 mg] 50 mg PO BID 11/20/14 [History] raNITIdine HCL [Ranitidine HCl] 150 mg PO BID 11/20/14 [History] Fexofenadine HCl [Kimberly] 180 mg PO DAILY 06/27/15 [History] Hx Tetanus, Diphtheria Vaccination/Date Given: Yes Hx Influenza Vaccination/Date Given: Yes Hx Pneumococcal Vaccination/Date Given: Yes Travel Risk - International Travel Have you traveled outside of the country in past 3 weeks: No - Coronavirus Screening Are you exhibiting any of the following symptoms?: No Close contact with a COVID-19 positive Pt in past 14-21 Days: No - Review of Systems Constitutional: No Symptoms Eyes: No Symptoms Ears, Nose, & Throat: No Symptoms Respiratory: No Symptoms Cardiac: No Symptoms Abdominal/Gastrointestinal: Abdominal Pain Genitourinary Symptoms: No Symptoms Musculoskeletal: No Symptoms Skin: No Symptoms Neurological: No Symptoms Psychological: No Symptoms Endocrine: No Symptoms Hematologic/Lymphatic: No Symptoms Immunological/Allergic: No Symptoms All Other Systems: Reviewed and Negative - Past Medical History Pertinent Past Medical History: Yes Neurological History: Migraines ENT History: Cataracts Cardiac History: Hypertension Respiratory History: Asthma Endocrine Medical History: Hypothyroidism Musculoskeletal History: Osteoporosis GI Medical History: GERD, Other History: Other Psycho-Social History: Depression Female Reproductive Disorders: No Pertinent History Other Medical History: numerous environmental allergies - Past Surgical History Past Surgical History: Yes Neuro Surgical History: No Pertinent History Cardiac: No Pertinent History Respiratory: No Pertinent History Gastrointestinal: Cholecystectomy Genitourinary: No Pertinent History Musculoskeletal: No Pertinent History Female Surgical History: Tubal Ligation Other Surgical History: THERMAL ABLATION, states past sinus surgery unknown procedure as stated per patient - Social History Smoking Status: Never smoker Exposure to second hand smoke: Yes Drug Use: none Patient Lives Alone: No - Nursing Vital Signs Nursing Vital Signs: Initial Vital Signs Temperature 97.7 F 04/25/20 21:30 Pulse Rate 75 04/25/20 21:30 Respiratory Rate 20 04/25/20 21:30 Blood Pressure 123/81 04/25/20 21:30 O2 Sat by Pulse Oximetry 100 04/25/20 21:30 Pain Scale Pain Intensity 10 - Physical Exam General Appearance: no apparent distress, alert, anxiety Eye Exam: PERRL/EOMI, eyes nml inspection Ears, Nose, Throat Exam: normal ENT inspection, moist mucous membranes Neck Exam: normal inspection, non-tender, supple, full range of motion Respiratory Exam: normal breath sounds, lungs clear, No chest tenderness, No respiratory distress Cardiovascular Exam: regular rate/rhythm, normal heart sounds, normal peripheral pulses Gastrointestinal/Abdomen Exam: soft, normal bowel sounds, tenderness, guarding, No rebound Pelvic Exam: not done Rectal Exam: not done Back Exam: normal inspection, normal range of motion, No CVA tenderness, No vertebral tenderness Extremity Exam: normal inspection, normal range of motion, pelvis stable Skin Exam: normal color, warm, dry Lymphatic Exam: No adenopathy SpO2 Interpretation: normal O2 Delivery: Room Air - Course Nursing assessment & vital signs reviewed: Yes Ordered Tests: Active Orders 24 hr Category Date Time Status IV Insertion STAT Care 04/25/20 21:46 Active ABDOMEN AND PELVIS W/0 CONTRAS [CT] Stat Exams 04/25/20 21:46 Taken AMYLASE Stat Lab 04/25/20 21:55 Received CBC W DIFF Stat Lab 04/25/20 21:55 Completed CMP Stat Lab 04/25/20 21:55 Received LIPASE Stat Lab 04/25/20 21:55 Received Lactic Acid Stat Lab 04/25/20 21:50 Completed UA W/RFX UR CULTURE Stat Lab 04/25/20 21:55 Completed Medication Summary Generic Name Dose Route Start Last Admin Trade Name Freq PRN Reason Stop Dose Admin Sodium Chloride 1,000 mls @ 999 mls/hr 04/25/20 21:46 04/25/20 22:15 Sodium Chloride 0.9% 1000 Ml IV 04/25/20 22:46 999 mls/hr .[id number] STA Administration Discontinued Medications Generic Name Dose Route Start Last Admin Trade Name Freq PRN Reason Stop Dose Admin Hydromorphone HCl 0.5 mg 04/25/20 21:46 04/25/20 22:15 Hydromorphone 1 Mg/Ml Injection IV 04/25/20 21:47 0.5 mg STAT ONE Administration Hydromorphone HCl Confirm 04/25/20 22:09 Hydromorphone 1 Mg/Ml Injection Administered 04/25/20 22:10 Dose 1 mg .ROUTE .STK-MED ONE Sodium Chloride Confirm 04/25/20 22:09 Sodium Chloride 0.9% 1000 Ml Administered 04/25/20 22:10 Dose 1,000 mls @ ud .ROUTE .STK-MED ONE Ondansetron HCl 4 mg 04/25/20 21:46 04/25/20 22:15 Zofran 4 Mg/2 Ml Vial IV 04/25/20 21:47 4 mg STAT ONE Administration Ondansetron HCl Confirm 04/25/20 22:08 Zofran 4 Mg/2 Ml Vial Administered 04/25/20 22:09 Dose 4 mg .ROUTE .STK-MED ONE Lab/Rad Data: Laboratory Result Diagrams 04/25/20 21:55 Laboratory Results 04/25/20 04/25/20 04/25/20 Range/Units 21:55 21:55 21:50 WBC 7.6 (4.0-10.5) K/mm3 RBC 5.25 (4.1-5.4) M/mm3 Hgb 13.0 (12.0-16.0) gm/dl Hct 43.5 (35-47) % MCV 82.9 (78-100) fl MCH 24.8 L (26-32) pg MCHC 29.9 L (32-36) g/dl RDW 18.1 H (11.5-14.0) % Plt Count 321 (150-450) K/mm3 MPV 10.2 (7.5-11.0) fl Gran % 60.4 (36.0-66.0) % Eos # (Auto) 0.15 (0-0.5) Absolute Lymphs (auto) 2.36 (1.0-4.6) Absolute Monos (auto) 0.45 (0.0-1.3) Lymphocytes % 31.0 (24.0-44.0) % Monocytes % 5.9 (0.0-12.0) % Eosinophils % 2.0 (0.00-5.0) % Basophils % 0.7 (0.0-0.4) % Absolute Granulocytes 4.60 (1.4-6.9) Basophils # 0.05 (0-0.4) Lactic Acid 1.5 (0.4-2.0) Urine Color YELLOW (YELLOW) Urine Appearance SLIGHTLY CLOUDY (CLEAR) Urine pH 7.0 (5-6) Ur Specific [place] 1.017 (1.005-1.025) Urine Protein NEGATIVE (Negative) Urine Ketones NEGATIVE (NEGATIVE) Urine Blood NEGATIVE (0-5) Chau/ul Urine Nitrite NEGATIVE (NEGATIVE) Urine Bilirubin NEGATIVE (NEGATIVE) Urine Urobilinogen NEGATIVE (0-1) mg/dL Ur Leukocyte Esterase SMALL (NEGATIVE) Urine WBC (Auto) 6-10 (0-5) /HPF Urine RBC (Auto) 0-2 (0-2) /HPF U Epithel Cells (Auto) RARE (FEW) /HPF Urine Bacteria (Auto) RARE (NEGATIVE) /HPF Amorphous Crystals FEW (NEGATIVE) /HPF Urine Mucus (Auto) SLIGHT (NEGATIVE) /HPF Urine Culture Reflexed NO (NO) Urine Glucose NEGATIVE (NEGATIVE) mg/dL - Progress Progress: improved, pain not gone completely, re-examined Progress Note: 04/25/20 22:29 CAT scan of the abdomen and pelvis without contrast shows a new 4 to 5 mm left ureteral vesicular junction stone producing partial obstruction. Counseled pt/family regarding: lab results, diagnosis, need for follow-up, rad results - Departure Departure Disposition: Home Clinical Impression: Ureteral calculus, UTI (urinary tract infection) Condition: Stable Critical Care Time: No Referrals: PRITESH FISCHER [Primary Care Provider] - Additional Instructions: Drink plenty of fluids. Take medication as prescribed. Follow-up with your primary care physician for further management. Use Tylenol and ibuprofen for pain control. Prescriptions: Ciprofloxacin [Cipro 500 MG] 500 mg PO BID #14 tablet
[2020-04-25 21:41] VITALS: O2SAT 100
[2020-04-25] MEDS ORDERED: Zofran 4 MG/2 ML VIAL IV ONE (21:46)
[2020-04-25] MEDS ORDERED: Sodium Chloride 0.9% 1000 ML 1,000 ML IV STA (21:46)
[2020-04-25] MEDS ORDERED: Hydromorphone 1 mg/ml Injection IV ONE (21:46)
[2020-04-25 22:00] LABS: BASOPHIL % 0.7 % (0.0-0.4); Basophil (Absolute #) 0.05 (0-0.4); Eosinophil (Absolute #) 0.15 (0-0.5); Hematocrit 43.5 % (35-47); Lymphocyte (Absolute #) 2.36 (1.0-4.6); Mean Cell Volume 82.9 fl (78-100); Mean Corpuscular Hemoglobin 24.8 pg (26-32); Mean Corpuscular Hgb Concent. 29.9 g/dl (32-36); Mean Platelet Volume 10.2 fl (7.5-11.0); Monocyte (Absolute #) 0.45 (0.0-1.3); Monocytes % 5.9 % (0.0-12.0); Neutrophil % 60.4 % (36.0-66.0); Platelet Count 321 K/mm3 (150-450); Red Blood Count 5.25 M/mm3 (4.1-5.4); Red Cell Distribution Width 18.1 % (11.5-14.0); White Blood Count 7.6 K/mm3 (4.0-10.5)
[2020-04-25] MEDS ORDERED: Zofran 4 MG/2 ML VIAL ONE (22:08)
[2020-04-25] MEDS ORDERED: Sodium Chloride 0.9% 1000 ML 1,000 ML ONE (22:09)
[2020-04-25] MEDS ORDERED: Hydromorphone 1 mg/ml Injection ONE (22:09)
[2020-04-25 22:20] LABS: Amourphous Crystal FEW /HPF (NEGATIVE); Appearance SLIGHTLY CLOUDY (CLEAR); Bacteria RARE /HPF (NEGATIVE); Bilirubin NEGATIVE (NEGATIVE); Blood NEGATIVE Ery/ul (0-5); Epithelial Cells RARE /HPF (FEW); Glucose NEGATIVE (NEGATIVE); Ketones NEGATIVE (NEGATIVE); Leukocyte Esterase SMALL (NEGATIVE); Mucus SLIGHT /HPF (NEGATIVE); Nitrite NEGATIVE (NEGATIVE); Protein,Urine Dip NEGATIVE (Negative); RBC 0-2 /HPF (0-2); Specific Gravity 1.017 (1.005-1.025); Urobilinogen NEGATIVE mg/dL (0-1)
[2020-04-25] MEDS ORDERED: Levofloxacin 500 MG Tablet PO ONE (22:28)
[2020-04-25] MEDS ORDERED: Levofloxacin 500 MG Tablet ONE (22:37)
[2020-04-25 22:42] LABS: ALBUMIN 3.8 g/dL (3.5-5.0); ALKALINE PHOSPHATASE 80 U/L (38-126); AMYLASE 45 U/L (30-110); ANION GAP 8.5 MEQ/L (5-15); BLOOD UREA NITROGEN 14 mg/dL (7-17); CHLORIDE 111 mmol/L (98-107); Calcium 8.9 mg/dL (8.4-10.2); Carbon Dioxide 24 mmol/L (22-30); Creatinine 1 0.93 mg/dL (0.52-1.04); EST GLOMERULAR FILTRATION RATE > 60.0 ML/MIN; Glucose 96 mg/dL (74-106); LIPASE 71 U/L (23-300); Potassium 4.4 mmol/L (3.5-5.1); SGOT/AST 17 U/L (14-36); SGPT/ALT 13 U/L (0-35); SODIUM 140 mmol/L (137-145); Total Protein 7.1 g/dL (6.3-8.2)
[2020-04-25 23:20] VITALS: BP 121/78; PULSE 70
--- NOTE | 2020-04-26 08:44 | XRAY ---
Indication: Abdomen pain 2 months. Multiple contiguous axial images obtained through the abdomen and pelvis without contrast as ordered. Comparison: December 11, 2017. Lung bases remain clear. Heart is not enlarged. Stable small hiatal hernia. Noncontrasted stomach and bowel loops appear nonobstructed. Normal appendix. Again cholecystectomy. New 4-5 mm left UVJ calculus. Proximal left ureter is prominent up to 7 mm and there is mild hydronephrosis consistent with obstructive uropathy. No free fluid/air. Remaining liver, pancreas, spleen, adrenal glands, kidneys, ureters, bladder, uterus, and aorta appear unremarkable for noncontrast exam. Osseous structures intact. Impression: 1. New 4-5 mm left UVJ calculus producing partial obstruction. 2. Stable small hiatal hernia. 3. Remaining CT abdomen/pelvis without contrast exam is negative.
== END 2020-04-25 23:37 | disposition home or self-care (01) ==
LOC: ED 21:14
DX: N20.1 Calculus of ureter (principal); N39.0 Urinary tract infection, site not specified
CPT/HCPCS: 36000; 36415; 74176; 80053; 81001; 82150; 83605; 83690; 85025; 96374; 96375; 99284; J1170; J2405; A9270-GY

== ENCOUNTER 2020-08-28 12:28 | Emergency (ER) | payer OTHER ==
[2020-08-28] MEDS ORDERED: Norflex 60 MG/2 ML ONE (12:53)
[2020-08-28] MEDS ORDERED: TORAdol 30 mg Injection ONE (12:53)
[2020-08-28] MEDS ORDERED: TORAdol 30 mg Injection IM ONE (12:56)
[2020-08-28] MEDS ORDERED: Norflex 60 MG/2 ML IM ONE (12:56)
--- NOTE | 2020-08-28 13:24 | ERPHSYRPT ---
- History of Present Illness Time Seen by Provider: 08/28/20 12:44 Source: patient Exam Limitations: no limitations Patient Subjective Stated Complaint: neck, shoulder, neck pain Triage Nursing Assessment: pt to ED c/o neck, R shoulder and arm pain x 3 years. denies any change in quality or any new pains. pt states she had xray of neck done by PCP last month and was dx with slipped disc in neck. pt states she now has an "odor" related to the slipped disc. rates 10/10 pain. Physician History: 50 years old female with multiple medical problems including obesity, chronic neck pain/cervicalgia with radiation to right upper extremity with tingling for the last 3 years related to degenerative disc disease presented in the ER for pain chart as her current pain medications are not helping very well. Patient reports her pain is sharp radiating to right upper extremity, aggravated with lying down in a certain position and better with changing position but denies any new fall or trauma to the neck. Denies any weakness in upper extremity. No different gait than usual. Denies any chest pain palpitations or shortness of breath. Patient reports these medications are not helping her very well and try to make an appointment with primary care [facility] booked all day long and she has to come to the ER to get a pain relieving shot. Timing/Duration: week(s), worse Severity: moderate Modifying Factors: Worsens With: movement Associated Symptoms: denies symptoms Allergies/Adverse Reactions: Penicillins Allergy (Verified 08/28/20 12:46) anaphylaxis aspirin Adverse Reaction (Verified 08/28/20 12:46) Home Medications: Albuterol 2.5 mg/0.5 ml [PROVENTIL Solution 2.5 MG/0.5 ML] 2.5 mg IH QID 11/20/14 [History] Albuterol Sulfate [Proair Hfa] 8.5 gm IH QID 11/20/14 [History] Fluticasone Propionate [Flonase NASAL] 16 gm NS DAILY 11/20/14 [History] Fluticasone/Salmeterol [Advair 250-50 Diskus] 1 puff IH BID 11/20/14 [History] Ipratropium Hector 0.2 mg IH QID 11/20/14 [History] Levothyroxine Sodium 50 Mcg [Synthroid 50 Mcg] 50 mcg PO DAILY 11/20/14 [History] Lisinopril/Hydrochlorothiazide [Lisinopril-Hctz 10-12.5 mg Tab] 1 each PO DAILY 11/20/14 [History] Montelukast Sodium [Singulair] 10 mg PO DAILY 11/20/14 [History] Oxybutynin Chloride 5 mg PO BID 11/20/14 [History] PARoxetine HCL [Paroxetine HCl] 40 mg PO DAILY 11/20/14 [History] Topiramate 100 mg [Topamax 100 MG] 100 mg PO BID 11/20/14 [History] Tramadol HCl 50 mg [Ultram 50 mg] 50 mg PO BID 11/20/14 [History] raNITIdine HCL [Ranitidine HCl] 150 mg PO BID 11/20/14 [History] Fexofenadine HCl [Kimberly] 180 mg PO DAILY 06/27/15 [History] Hx Tetanus, Diphtheria Vaccination/Date Given: Yes Hx Influenza Vaccination/Date Given: Yes Hx Pneumococcal Vaccination/Date Given: No Immunizations Up to Date: Yes Travel Risk - International Travel Have you traveled outside of the country in past 3 weeks: No - Coronavirus Screening Are you exhibiting any of the following symptoms?: No Close contact with a COVID-19 positive Pt in past 14-21 Days: No - Review of Systems Constitutional: No Symptoms Eyes: No Symptoms Ears, Nose, & Throat: No Symptoms Respiratory: No Symptoms Cardiac: No Symptoms Abdominal/Gastrointestinal: No Symptoms Genitourinary Symptoms: No Symptoms Musculoskeletal: Neck Pain Skin: No Symptoms Neurological: No Symptoms Psychological: No Symptoms Endocrine: No Symptoms Hematologic/Lymphatic: No Symptoms Immunological/Allergic: No Symptoms - Past Medical History Pertinent Past Medical History: Yes Neurological History: Migraines ENT History: Cataracts Cardiac History: Hypertension Respiratory History: Asthma Endocrine Medical History: Hypothyroidism Musculoskeletal History: Degenerative Disk Disease, Osteoporosis GI Medical History: GERD, Other History: Other Psycho-Social History: Depression Female Reproductive Disorders: No Pertinent History Other Medical History: numerous environmental allergies. slipped disc in back and neck - Past Surgical History Past Surgical History: Yes Neuro Surgical History: No Pertinent History Cardiac: No Pertinent History Respiratory: No Pertinent History Gastrointestinal: Cholecystectomy Genitourinary: No Pertinent History Musculoskeletal: No Pertinent History Female Surgical History: Tubal Ligation Other Surgical History: THERMAL ABLATION, states past sinus surgery unknown procedure as stated per patient - Social History Smoking Status: Never smoker Exposure to second hand smoke: Yes Drug Use: marijuana Patient Lives Alone: No - Female History Hx Now: No (ablasion) - Nursing Vital Signs Nursing Vital Signs: Initial Vital Signs Temperature 98.2 F 08/28/20 12:35 Pulse Rate 83 08/28/20 12:35 Respiratory Rate 18 08/28/20 12:35 Blood Pressure 142/87 08/28/20 12:35 O2 Sat by Pulse Oximetry 99 08/28/20 12:35 Pain Scale Pain Intensity 6 - Physical Exam General Appearance: no apparent distress, alert, anxiety Eye Exam: PERRL/EOMI, eyes nml inspection Ears, Nose, Throat Exam: normal ENT inspection, TMs normal, pharynx normal Neck Exam: normal inspection, supple, full range of motion, other (mild midline tenderness , para cervical mscle spasm and tenderness) Respiratory Exam: normal breath sounds, lungs clear Cardiovascular Exam: regular rate/rhythm, normal heart sounds Gastrointestinal/Abdomen Exam: soft, normal bowel sounds, No tenderness Back Exam: normal inspection, normal range of motion Extremity Exam: normal inspection, normal range of motion Neurologic Exam: alert, oriented x 3, cooperative, 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 tested, normal mood/affect Skin Exam: normal color SpO2 Interpretation: normal SpO2: 99 O2 Delivery: Room Air Ordered Tests: Medication Summary Discontinued Medications Generic Name Dose Route Start Last Admin Trade Name Tetoq PRN Reason Stop Dose Admin Ketorolac Tromethamine Confirm 08/28/20 12:53 Toradol 30 Mg Injection Administered 08/28/20 12:54 Dose 30 mg .ROUTE .STK-MED ONE Ketorolac Tromethamine 30 mg 08/28/20 12:56 08/28/20 13:00 Toradol 30 Mg Injection IM 08/28/20 12:57 30 mg STAT ONE Administration Orphenadrine Citrate Confirm 08/28/20 12:53 Norflex 60 Mg/2 Ml Administered 08/28/20 12:54 Dose 60 mg .ROUTE .STK-MED ONE Orphenadrine Citrate 60 mg 08/28/20 12:56 08/28/20 13:00 Norflex 60 Mg/2 Ml IM 08/28/20 12:57 60 mg STAT ONE Administration - Progress Progress: improved, re-examined Progress Note: 08/28/20 13:41 50 years old is evaluated for chronic neck and right upper extremity pain. She is given Toradol and Norflex, reevaluation feeling better and she is ambulating in the ER without any limitation. She does not have any weakness in upper extremities. Her pain is paracervical muscle area. I believe patient has some degenerative disc disease with some nerve impingement and would benefit with outpatient MRI. I would give her a short course of steroid and will change her muscle relaxant to tizanidine and recommended continuing with tramadol. Her pain is chronic and no changes recently, do not think she needs emergent imaging but outpatient would be okay. Discussed signs symptoms of worsening needing return to ER which she seemed understanding. Counseled pt/family regarding: diagnosis, need for follow-up - Departure Departure Disposition: Home Clinical Impression: Cervicalgia Condition: Stable Critical Care Time: No Referrals: PRITESH FISCHER [Primary Care Provider] - (1-2 days for reevaluation) Instructions: Chronic Neck Pain (DC), Neck Pain Exercises Additional Instructions: Continue with current pain medications. Stop taking Flexeril/muscle relaxant and start tizanidine instead. Take Tylenol/ibuprofen as needed. Follow-up with your primary care physician for reevaluation and scheduling outpatient MRI of the neck for further evaluation of neck pain. Return to ER if has numbness weakness in upper extremities or difficulty gait or worsening pain etc. Prescriptions: Prednisone 20 mg [Deltasone 20 mg] 60 mg PO DAILY 5 Days #15 tablet Tizanidine HCl 4 mg [Zanaflex 4 MG] 4 mg PO BID 15 Days #30 tablet
[2020-08-28 13:36] VITALS: BP 130/60; PULSE 68
[2020-08-28 13:45] VITALS: O2SAT 99
== END 2020-08-28 13:49 | disposition home or self-care (01) ==
LOC: ED 12:28
DX: M54.2 Cervicalgia (principal); M25.511 Pain in right shoulder; E66.9 Obesity, unspecified; I10 Essential (primary) hypertension; E03.9 Hypothyroidism, unspecified; Z79.899 Other long term (current) drug therapy
CPT/HCPCS: 96372; 99284; J1885; J2360

== ENCOUNTER 2023-07-09 22:19 | Emergency (ER) | payer OTHER ==
[2023-07-09 22:44] VITALS: TEMP 97.8
[2023-07-09] MEDS ORDERED: NORCO 5/325 MG PO ONE (22:50)
--- NOTE | 2023-07-09 22:53 | ERPHSYRPT ---
- History of Present Illness Time Seen by Provider: 07/09/23 22:35 Source: patient, family Exam Limitations: no limitations Patient Subjective Stated Complaint: C/O right hip pain that started 2 days ago. Patient denies fall or injury. She states pain just started while walking. Denies pain radiating anywhere. Triage Nursing Assessment: Patient ambulated back to ER with a cane. She is alert and oriented. No cough. No SOB. Skin tone normal. Area of pain tender to palpation. No skin alterations noted to area of pain. Physician History: 53 years old female with history of hypertension, GERD, hyperlipidemia, chronic back pain presented in the ER with chief complaint of increasing right lower back/hip pain which started 2 days ago while she was walking. Patient reports moderate to severe sharp shooting pain, aggravated with weightbearing and no significant relief with taking routine pain medications. She denies any urinary complaints. No numbness tingling or weakness of lower extremities. No saddle anesthesia. Denies any fall or trauma to the back. Patient reports this pain is different than her routine back pain. Allergies/Adverse Reactions: Penicillins Allergy (Verified 07/09/23 22:31) anaphylaxis aspirin Adverse Reaction (Verified 07/09/23 22:31) Home Medications: Fluticasone Propionate [Flonase NASAL] 16 gm NS DAILY 11/20/14 [History] Montelukast Sodium [Singulair] 10 mg PO DAILY 11/20/14 [History] Topiramate 100 mg [Topamax 100 MG] 100 mg PO BID 11/20/14 [History] Famotidine [Pepcid] 1 tab PO HS PRN 07/10/23 [History] Levothyroxine Sodium 75 Mcg [Synthroid 75 Mcg] 1 tab PO DAILY 07/10/23 [History] Lisinopril 10 mg [Zestril 10 MG] 1 tab PO DAILY 07/10/23 [History] Raloxifene HCl [Evista] 1 tab PO DAILY 07/10/23 [History] hydroCHLOROthiazide [Hydrochlorothiazide] 1 cap PO DAILY 07/10/23 [History] Hx Tetanus, Diphtheria Vaccination/Date Given: Yes Hx Influenza Vaccination/Date Given: Yes Hx Pneumococcal Vaccination/Date Given: No Immunizations Up to Date: Yes Travel Risk - International Travel Have you traveled outside of the country in past 3 weeks: No - Coronavirus Screening Are you exhibiting any of the following symptoms?: No Close contact with a COVID-19 positive Pt in past 14-21 Days: No - Vaccine Status Have you recieved a Covid-19 vaccination: Yes 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 - Review of Systems Constitutional: No Symptoms Ears, Nose, & Throat: No Symptoms Respiratory: No Symptoms Cardiac: No Symptoms Abdominal/Gastrointestinal: No Symptoms Genitourinary Symptoms: No Symptoms Musculoskeletal: Back Pain Skin: No Symptoms Neurological: No Symptoms Hematologic/Lymphatic: No Symptoms Immunological/Allergic: No Symptoms - Past Medical History Pertinent Past Medical History: Yes Neurological History: Migraines ENT History: Cataracts Cardiac History: Hypertension Respiratory History: Asthma Endocrine Medical History: Hypothyroidism Musculoskeletal History: Degenerative Disk Disease, Osteoporosis GI Medical History: GERD, Gallbladder Disease, Other History: Other Psycho-Social History: Depression Female Reproductive Disorders: No Pertinent History Other Medical History: numerous environmental allergies, slipped disc in back and neck - Past Surgical History Past Surgical History: Yes Neuro Surgical History: No Pertinent History Cardiac: No Pertinent History Respiratory: No Pertinent History Gastrointestinal: Cholecystectomy Genitourinary: No Pertinent History Musculoskeletal: No Pertinent History Female Surgical History: Tubal Ligation Other Surgical History: THERMAL ABLATION, states past sinus surgery unknown procedure as stated per patient - Social History Smoking Status: Never smoker Exposure to second hand smoke: Yes Drug Use: none Patient Lives Alone: No - Nursing Vital Signs Nursing Vital Signs: Initial Vital Signs Temperature 97.8 F 07/09/23 22:32 Pulse Rate 80 07/09/23 22:32 Respiratory Rate 18 07/09/23 22:32 Blood Pressure 94/53 07/09/23 22:32 O2 Sat by Pulse Oximetry 94 L 07/09/23 22:32 Pain Scale Pain Intensity [Right hip pain 10 ] Pain Intensity 6 - Physical Exam General Appearance: no apparent distress, alert Eye Exam: PERRL/EOMI Ears, Nose, Throat Exam: normal ENT inspection Neck Exam: normal inspection, supple, full range of motion Respiratory Exam: normal breath sounds, lungs clear Cardiovascular Exam: regular rate/rhythm, normal heart sounds Gastrointestinal Exam: soft, normal bowel sounds, tenderness (Mild tenderness right lower quadrant) Back Exam: normal inspection, normal range of motion, muscle spasm, point tenderness (Right sacroiliac area) Extremity Exam: normal inspection, normal range of motion Neurologic Exam: alert, oriented x 3, normal mood/affect Skin Exam: normal color SpO2 Interpretation: normal SpO2: 94 O2 Delivery: Room Air Ordered Tests: Medication Summary Discontinued Medications Generic Name Dose Route Start Last Admin Trade Name Freq PRN Reason Stop Dose Admin Hydrocodone Bitart/Acetaminophen 1 tab 07/09/23 22:50 07/09/23 23:01 Hydrocodone/Apap 5/325 1 Tab Tablet PO 07/09/23 22:51 1 tab STAT ONE Administration Hydrocodone Bitart/Acetaminophen Confirm 07/09/23 22:59 Hydrocodone/Apap 5/325 1 Tab Tablet Administered 07/09/23 23:00 Dose 1 tab .ROUTE .STK-MED ONE Ketorolac Tromethamine 30 mg 07/10/23 00:38 07/10/23 00:45 Ketorolac Tromethamine 30 Mg/Ml Inj IM 07/10/23 00:39 30 mg STAT ONE Administration Ketorolac Tromethamine Confirm 07/10/23 00:44 Ketorolac Tromethamine 30 Mg/Ml Inj Administered 07/10/23 00:45 Dose 30 mg .ROUTE .STK-MED ONE Nitrofurantoin Macrocrystals 100 mg 07/10/23 01:51 07/10/23 02:03 Nitrofurantoin Macro 100 Mg Capsule PO 07/10/23 01:52 100 mg STAT ONE Administration Nitrofurantoin Macrocrystals Confirm 07/10/23 02:02 Nitrofurantoin Macro 100 Mg Capsule Administered 07/10/23 02:03 Dose 100 mg .ROUTE .STK-MED ONE Lab/Rad Data: Laboratory Result Diagrams 07/09/23 23:05 07/09/23 23:05 Laboratory Results 07/10/23 07/09/23 07/09/23 Range/Units 00:17 23:05 23:05 WBC 7.9 (4.0-10.5) x10^3/uL RBC 4.61 (4.1-5.4) x10^6/uL Hgb 13.5 (12.0-16.0) g/dL Hct 42.2 (35-47) % MCV 91.5 (78-100) fL MCH 29.3 (26-32) pg MCHC 32.0 (32-36) g/dL RDW 13.4 (11.5-14.0) % Plt Count 239 (150-450) x10^3/uL MPV 9.9 (7.5-11.0) fL Gran % 66.6 H (36.0-66.0) % Immature Gran % (Auto) 0.4 (0.00-0.4) % Nucleat RBC Rel Count 0.0 (0.00-0.1) % Eos # (Auto) 0.12 (0-0.5) x10^3/uL Immature Gran # (Auto) 0.03 (0.00-0.03) x10^3u/L Absolute Lymphs (auto) 1.90 (1.0-4.6) x10^3/uL Absolute Monos (auto) 0.55 (0.0-1.3) x10^3/uL Absolute Nucleated RBC 0.00 (0.00-0.01) x10^3u/L Lymphocytes % 24.0 (24.0-44.0) % Monocytes % 6.9 (0.0-12.0) % Eosinophils % 1.5 (0.00-5.0) % Basophils % 0.6 (0.0-0.4) % Absolute Granulocytes 5.27 (1.4-6.9) x10^3/uL Basophils # 0.05 (0-0.4) x10^3/uL Sodium 135 L (137-145) mmol/L Potassium 3.8 (3.5-5.1) mmol/L Chloride 103 (98-107) mmol/L Carbon Dioxide 23 (22-30) mmol/L Anion Gap 12.4 (5-15) MEQ/L BUN 21 H (7-17) mg/dL Creatinine 1.23 H (0.52-1.04) mg/dL Estimated GFR 51.9 ML/MIN Glucose 95 (74-106) mg/dL Calcium 9.4 (8.4-10.2) mg/dL Total Bilirubin 0.60 (0.2-1.3) mg/dL AST 20 (14-36) U/L ALT 17 (0-35) U/L Alkaline Phosphatase 78 (38-126) U/L Serum Total Protein 7.1 (6.3-8.2) g/dL Albumin 3.8 (3.5-5.0) g/dL Urine Color Yellow (Yellow) Urine Appearance Clear (Clear) Urine pH 5.0 (4.6-8.0) Ur Specific [place] 1.020 (1.005-1.030) Urine Protein Negative (Negative) Urine Glucose (UA) Negative (Negative) mg/dL Urine Ketones Negative (Negative) Urine Blood Negative (Negative) Urine Nitrite Negative (Negative) Urine Bilirubin Negative (Negative) Urine Urobilinogen 0.2 (0.2) mg/dL Ur Leukocyte Esterase Small A (Negative) U Hyaline Cast (Auto) 3-5 A (0-2) /LPF Urine Microscopic RBC 0-2 (0-5) /HPF Urine Microscopic WBC 21-50 A (0-5) /HPF Ur Epithelial Cells Rare (None Seen) /HPF Urine Bacteria None Seen (None Seen) /HPF Urine Culture Reflexed YES (NO) - Progress Progress: improved, pain not gone completely, re-examined Progress Note: 07/10/23 01:06 33-year-old is evaluated for right lower back pain sudden onset while she was walking a couple of days ago without any symptoms of cauda equina. No definite or midline tenderness. Tenderness in the right hip area. Negative CVA tenderness. Given symptomatic treatment for pain, on reevaluation she is feeling better. I have obtained baseline labs with normal white count, fairly unremarkable chemistries except for mild elevation in creatinine of 1.2. He is advised to drink plenty of fluids. CT abdomen pelvis without contrast is negative for any acute osseous finding, no intra abdominal/pelvic acute finding. She has nonobstructing stone in the kidney left no ureteral stone or obstruction. Patient has pain medications at home which she is advised to continue with. This could be brain/radiculopathy. Will give her muscle relaxant. Discussed signs symptoms of worsening. Stable for discharge. 07/10/23 01:52 Has UTI and started on antibiotics Counseled pt/family regarding: lab results, diagnosis, need for follow-up, rad results Medical Desision Making - Independent Historian Additional History obtained from: Spouse - Diagnostic Testing Diagnostic test were ordered, analyzed, and reviewed by me: Yes Radiological Interpretation: Reviewed by me - Risk of complications The pt has a mod risk of morbidity or mortality based on: Need for prescription drug management - Departure Departure Disposition: Home Clinical Impression: Low back strain, UTI (urinary tract infection) Condition: Stable Critical Care Time: No Referrals: PRITESH FISCHER [Primary Care Provider] - Follow up with PCP 1 day Instructions: Back Muscle Strain (DC), Urinary Tract Infection, Adult ED Additional Instructions: Take pain medications which you have at home as recommended. Follow-up with your primary care for reevaluation. Return to ER for intractable pain, numbness tingling weakness of lower extremities/loss of bowel or bladder control or perineal numbness. Prescriptions: Hydrocodone/Acetaminophen [Hydrocodone-Acetamin 5-325 mg] 1 tab PO Q6HPRN PRN 3 Days #10 tablet MDD 4 PRN Reason: Pain Nitrofurantoin Macro 100 mg [Macrobid 100MG Capsule] 100 mg PO BID #14 cap Methocarbamol [Robaxin] 500 mg PO QID 5 Days #20 tablet
[2023-07-09] MEDS ORDERED: NORCO 5/325 MG ONE (22:59)
[2023-07-09 23:17] LABS: Absolute Neutrophil Ct (ANC) 5.27 x10^3/uL (1.4-6.9); BASOPHIL % 0.6 % (0.0-0.4); Basophil (Absolute #) 0.05 x10^3/uL (0-0.4); Eosinophil % 1.5 % (0.00-5.0); Eosinophil (Absolute #) 0.12 x10^3/uL (0-0.5); Hematocrit 42.2 % (35-47); Hemoglobin 13.5 g/dL (12.0-16.0); IMMATURE GRAN # 0.03 x10^3u/L (0.00-0.03); IMMATURE GRAN % 0.4 % (0.00-0.4); Mean Cell Volume 91.5 fL (78-100); Mean Corpuscular Hemoglobin 29.3 pg (26-32); Mean Platelet Volume 9.9 fL (7.5-11.0); Monocyte (Absolute #) 0.55 x10^3/uL (0.0-1.3); Monocytes % 6.9 % (0.0-12.0); Neutrophil % 66.6 % (36.0-66.0); Platelet Count 239 x10^3/uL (150-450); Red Blood Count 4.61 x10^6/uL (4.1-5.4); Red Cell Distribution Width 13.4 % (11.5-14.0); White Blood Count 7.9 x10^3/uL (4.0-10.5)
[2023-07-09 23:32] LABS: ALBUMIN 3.8 g/dL (3.5-5.0); ANION GAP 12.4 MEQ/L (5-15); BILIRUBIN,TOTAL 0.6 mg/dL (0.2-1.3); Calcium 9.4 mg/dL (8.4-10.2); Creatinine 1 1.23 mg/dL (0.52-1.04); EST GLOMERULAR FILTRATION RATE 51.9 ML/MIN; Potassium 3.8 mmol/L (3.5-5.1); Total Protein 7.1 g/dL (6.3-8.2)
[2023-07-10] MEDS ORDERED: TORAdol 30 mg Injection IM ONE (00:38)
[2023-07-10] MEDS ORDERED: TORAdol 30 mg Injection ONE (00:44)
--- NOTE | 2023-07-10 01:00 | XRAY ---
CLINICAL HISTORY:Right hip/RLQ/low back pain COMPARISON:Dated: 02/21/2022 TECHNIQUE:An axial CT scan of the abdomen and pelvis was performed without IV contrast. Coronal and sagittal reconstructive images were also obtained. FINDINGS: Sections of the lower thorax show no significant abnormality. Abdomen: The liver is of average size. No focal or diffuse parenchymal abnormality. The intrahepatic biliary radicals and the bile ducts are normal. The gallbladder is surgically removed. The spleen, pancreas and adrenal glands are unremarkable. The kidneys are normal in size and shape. The linear calcification seen at mid poles of both kidneys appears to be vascular, however, possible calculus could not be excluded. A rounded 2 mm calculus was seen in the inferior calyx of the left kidney. No hydronephrosis on either side. The ascending colon and the transverse colon are loaded with fecal matter. The transverse colon is redundant. The descending colon, visualized small bowel loops are unremarkable. No inflammatory changes were noted in the right iliac fossa region. There is no evidence of significant enlargement of the mesenteric or retroperitoneal lymph nodes. The abdominal aorta shows mild atherosclerotic changes with few small calcified plaques. Pelvis: The urinary bladder is unremarkable. The rectosigmoid colon is unremarkable. The uterus and adnexa appear unremarkable. No evidence of pelvic lymphadenopathy. The lumbar spine shows mild degenerative changes. Few sclerotic foci were noted in the sacrum and pelvic bones, likely enostosis. No definite abnormality was detected in the right hip. No evidence of joint effusion. IMPRESSION: 1. No significant acute abnormality was detected in the CT abdomen and pelvis, within the limitations of the plain study 2. The linear calcification at mid poles of both kidneys appears to be vascular, however, possible calculus could not be excluded. New interval finding. 3. A rounded 2 mm non-obstructive calculus in the inferior calyx of the left kidney. New interval finding. 4. No definite abnormality was detected in the right hip. No evidence of joint effusion. Electronically Signed by: Denzel Mejía MD. (07/10/2023 00:56:54 EST)
[2023-07-10 01:38] VITALS: RESP 17
[2023-07-10 01:44] LABS: Appearance Clear (Clear); Bacteria None Seen /HPF (None Seen); Bilirubin Negative (Negative); Blood Negative (Negative); Epithelial Cells Rare /HPF (None Seen); Glucose, Urine Negative (Negative); Ketones Negative (Negative); Leukocyte Esterase Small (Negative); Nitrite Negative (Negative); Protein,Urine Dip Negative (Negative); RBC 0-2 /HPF (0-5); Urobilinogen 0.2 mg/dL (0.2); WBC 21-50 /HPF (0-5)
[2023-07-10 01:45] VITALS: BP 121/70; PULSE 65
[2023-07-10 01:46] LABS: ADD URINE CULTURE? YES (NO)
[2023-07-10] MEDS ORDERED: Macrobid 100MG Capsule PO ONE (01:51)
[2023-07-10 01:53] VITALS: O2SAT 94
[2023-07-10] MEDS ORDERED: Macrobid 100MG Capsule ONE (02:02)
== END 2023-07-10 02:20 | disposition home or self-care (01) ==
LOC: ED 22:19
DX: S39.012A Strain of muscle, fascia and tendon of lower back, initial encounter (principal); X50.9XXA Other and unspecified overexertion or strenuous movements or postures, initial encounter; Y93.01 Activity, walking, marching and hiking; N39.0 Urinary tract infection, site not specified; I10 Essential (primary) hypertension; Z79.891 Long term (current) use of opiate analgesic; Z79.899 Other long term (current) drug therapy
CPT/HCPCS: 36415; 74176; 80053; 81001; 85025; 87086; 96372; 99284; J1885; A9270-GY